=== PATIENT | male | born 1955 | race Caucasian/White ===

== ENCOUNTER 2025-05-05 10:36 | Day surgery (SDC) | payer BC, OTHER ==
[~2025-05-05 10:36] MED LIST: Sodium Chloride 0.9% 10 ML Syringe FLUSH PRN; Sodium Chloride 0.9% 10 ML Syringe FLUSH SCH
[2025-05-05] MEDS: Lactated Ringers 1,000 ML IV SCH (11:45)
[2025-05-05] MEDS ORDERED: Propofol 200 MG/20 ML SDV ONE (12:00)
[2025-05-05] MEDS ORDERED: Midazolam 1 MG/ML 2 ML SDV ONE (12:01)
[2025-05-05] MEDS ORDERED: fentaNYL 100 MCG/2 ML SDV ONE (12:01)
[2025-05-05] MEDS ORDERED: Dexamethasone 4 MG/ML 5 ML MDV ONE (12:02)
[2025-05-05] MEDS ORDERED: Ondansetron 4 MG/2 ML SDV ONE (12:02)
[2025-05-05] MEDS ORDERED: ePHEDrine 50 MG/ML SDV ONE (12:45)
[2025-05-05] MEDS ORDERED: Ondansetron 4 MG/2 ML SDV IVPUSH PRN (13:12)
[2025-05-05] MEDS ORDERED: fentaNYL 100 MCG/2 ML SDV IVPUSH PRN (13:12)
== END 2025-05-05 14:33 | disposition home or self-care (01) ==
LOC: JD.SJHSC 10:36
PROVIDERS: ATTEND Orthopaedic Surgery
DX: G56.22 Lesion of ulnar nerve, left upper limb (principal); I10 Essential (primary) hypertension; E11.9 Type 2 diabetes mellitus without complications; F17.200 Nicotine dependence, unspecified, uncomplicated; Z91.041 Radiographic dye allergy status; Z91.013 Allergy to seafood; Z79.899 Other long term (current) drug therapy
CPT/HCPCS: 64718; J0665; J0690; J1100; J2003; J2250; J2405; J2704; J3010; J7120; J3490